=== PATIENT | female | born 1990 | race Caucasian/White ===

== ENCOUNTER → 2017-09-07 19:03 | Observation (INO) ==
[2017-09-07 16:59] LABS: Amphetamine Screen,Urine Negative ng/mL (Cutoff=1000); Barbiturate Screen,Urine Negative ng/mL (Cutoff=200); Benzodiazepines Screen,Urine Negative ng/mL (Cutoff=200); Cannabinoid Screen,Urine Negative ng/mL (Cutoff = 50); Cocaine Screen,Urine Negative ng/mL (Cutoff= 300); Opiate Screen,Urine Negative ng/mL (Cutoff=300); Phencyclidine Screen,Urine Negative ng/mL (Cutoff=25)
--- NOTE | 2017-09-07 19:21 | OB/GYN Progress Note ---
Date of Encounter: 09/07/17 Time of Encounter: 19:19 - Assessment and Plan (1) 32 weeks gestation of Current Visit: Yes Status: Acute (2) Fall Current Visit: Yes Status: Acute Reactive tracing, fingertip cervix, discharged home with labor and when to return to triage precautions Qualifiers: Encounter type: initial encounter Qualified Code(s): W19.XXXA - Unspecified fall, initial encounter (3) NST (non-stress test) reactive on surveillance Current Visit: Yes Status: Acute Baseline 140s Subjective - Subjective Interval history: 32 weeks gestation presents to triage following a fall yesterday evening at home. Patient states she was lifting after he got out of a bathtub and she fell forward landing on her elbows hands and knees, did not strike abdomen. Since then has had normal movement, had some cramping this morning, but that has ceased. Denies vaginal bleeding or leaking of fluid Antepartum ROS: movement normal, no loss of fluid, no vaginal bleeding, no contractions Objective - Exam FHR: auscultation normal Abdomen: Present: normal appearance, soft, gravid Cervical dilation: Fingertip/long/high
== END | disposition home or self-care (01) ==
LOC: 1NENULAB
PROVIDERS: ADMIT Obstetrics & Gynecology; ATTEND Obstetrics & Gynecology

== ENCOUNTER 2017-10-26 17:23 | Inpatient (IN) ==
[2017-10-26] MEDS ORDERED: *HR* Nalbuphine 10 MG/ML AMPUL IVP PRN (17:25)
[2017-10-26] MEDS ORDERED: Famotidine 20 MG/2 ML VIAL IVP PRN (17:25)
[2017-10-26] MEDS ORDERED: Ondansetron 4 MG/2 ML VIAL IVP PRN (17:25)
[2017-10-26] MEDS ORDERED: Metoclopramide 10 MG/2 ML VIAL IVP PRN (17:25)
[2017-10-26] MEDS ORDERED: Lidocaine 1% 20 ML MDV INFILT PRN (17:25)
[2017-10-26] MEDS ORDERED: Naloxone 0.4 MG/ML INJ IVP PRN (17:25)
[2017-10-26] MEDS ORDERED: Ringers Solution, Lactated 1,000 ML IVC SCH (17:30)
[2017-10-26 18:01] LABS: Bilirubin,Urine Negative (Negative); Blood,Urine Moderate (Negative); Clarity,Urine Cloudy (Clear); Color,Urine Yellow (Yellow); Glucose,Urine (UA) Normal (Normal); Ketones,Urine Negative (Negative); Leukocyte Esterase,Urine Moderate (Negative); Nitrite,Urine Negative (Negative); PH,Urine 6.5 pH Units (5.0-8.0); Protein,Urine Negative (Neg-Trace); Specific Gravity,Urine < 1.005 (1.010-1.025); Urobilinogen,Urine Normal (Normal)
[2017-10-26 18:03] LABS: Bacteria,Urine None Seen per hpf (None-Few); Hyaline Casts,Urine None Seen per lpf (None-Few); Squamous Epithelial Cell,Urine Many per lpf (None-Few); WBC,Urine 0-3 per hpf (0-3)
[2017-10-26 18:11] LABS: Basophils % 0.3 %
[2017-10-26 18:12] LABS: Protein/Creatinine Ratio,Urine 0.17 mg/mg (0.00-0.20)
[2017-10-26 18:18] LABS: Amphetamine Screen,Urine Negative ng/mL (Cutoff=1000); Barbiturate Screen,Urine Negative ng/mL (Cutoff=200); Benzodiazepines Screen,Urine Negative ng/mL (Cutoff=200); Cannabinoid Screen,Urine Negative ng/mL (Cutoff = 50); Cocaine Screen,Urine Negative ng/mL (Cutoff= 300); Opiate Screen,Urine Negative ng/mL (Cutoff=300); Phencyclidine Screen,Urine Negative ng/mL (Cutoff=25)
[2017-10-26 18:24] LABS: Alanine Aminotransferase 11 Units/L (7-52); Aspartate Amino Transferase 19 Units/L (13-39); BUN/Creatinine Ratio 20 (6-26); Blood Urea Nitrogen 10 mg/dL (6-20); Lactate Dehydrogenase 195 Units/L (140-271); Uric Acid 3.9 mg/dL (2.3-7.6); eGFR For Non-African Americans > 60 (> 60)
[2017-10-26 18:42] LABS: Eosinophils # 0.1 K/mcL (0.0-0.6); Eosinophils % 0.8 %; Hematocrit 39.7 % (35.3-44.9); Hemoglobin 13.2 g/dL (11.5-15.4); Immature Granulocytes % 0.7 % (0-4); Lymphocytes # 2.5 K/mcL (0.6-4.6); Lymphocytes % 26.4 %; Mean Corpuscular HGB Conc 33.2 g/dL (31.6-35.5); Mean Corpuscular Hemoglobin 28.8 pg (28.0-33.3); Mean Corpuscular Volume 86.5 fL (83.0-100.0); Mean Platelet Volume 11.2 fL (9.4-12.4); Monocytes # 0.7 K/mcL (0.0-1.3); Monocytes % 7.5 %; Neutrophils # 6.1 K/mcL (1.6-8.9); Platelet Count 172 K/mcL (140-400); Red Blood Count 4.59 M/mcL (3.82-4.97); Red Cell Distribution Width 13.3 % (11.5-14.5); Segmented Neutrophils % 64.3 %
[2017-10-26 18:56] LABS: Platelet Estimate Normal (Normal)
--- NOTE | 2017-10-26 18:56 | OB/GYN History & Physical ---
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 Lake is a 27 year old female at 39 weeks 0 days gestation with an EDB of 11/02/17 dated by early ultrasound. She presents from the office today with elevated blood pressures and left lower extremity swelling. She denies blurry vision, headache, epigastric pain. She endorses good movement and denies leakage of fluid, contractions, vaginal bleeding. She has been seen by Dr. Dwyer throughout this . records are available electronically and have been reviewed. Her has been complicated by gestational diabetes that is diet controlled. Labs: A+ GBS negative Hep B negative HIV negative RPR nonreactive GC/CL negative Varicella immune Rubella immune Past Med Surg Social Fam HX - Past Medical History Medical history: no medical history Psychiatric history: depression - Past Surgical History Surgical History: no surgical history - Social History Smoking Status: Never smoker Smokeless Tobacco Status: No Alcohol use: none Drug use: none, marijuana - Family History Brother Family Member Ethnicity: Non- Living Status: Still Living Hx Family Cardiac Disorders: No Hx Family Respiratory Disorders: No Hx Family Cancer: No Hx Family GI Disorders: Yes (pyloric stenosis) Hx Family Endocrine Disorder: No Hx Family Neuromuscular Disorders: No Hx Family Neurologic Disorders: No Hx Family HEENT Disorders: No Hx Family Autoimmune Disorders: No Hx Family Medical Disorders: Yes (pyloric stenosis) Obstetrical History - Pregnancies : 2 Para: 1 Term: 1 (08/25/15,Male,Arpan,6lbs 5oz,vaginal) : 0 Ab's: 0 Livin Medications and Allergies Tablet 08/24/15 [History] Ibuprofen [Motrin] 600 mg PO Q6HR PRN #40 tablet 08/26/15 [Rx] 3 Allergy/AdvReac Type Severity Reaction Status Date / Time [place] Allergy Hives Verified 10/26/17 17:40 penicillin G Allergy See Verified 10/26/17 17:40 Comments Review of System OB All systems PM: reviewed and no additional remarkable complaints except as stated Exam - Constitutional Constitutional: well developed, well nourished, no acute distress, average body habitus - HEENT HEENT: Normocephaly, Mucus Membranes Moist - Neck Neck exam: full ROM - Lungs Respiratory exam: CTAB - Cardiovascular Cardiovascular exam: RRR, +S1, +S2 - Breasts Breast: bilateral: normal - Abdomen Abdomen: Present: bowel sounds normal, gravid, non tender - Extremities Extremities exam: pedal edema, radial pulses palpable and symmetrical - Vulva Vulva: bilateral: normal - Vagina Vagina: Present: normal moisture - Cervix Dilation: 4 Effacement: 80 Station: -2 - Uterus Uterus exam: Present: normal size, normal contour Results Result Diagrams: 10/26/17 17:40 Abnormal lab results Creatinine 0.51 mg/dL (0.60-1.20) L 10/26/17 17:40 All other labs normal. - VTE Reasons for not Prescribing Prophylaxis: Treatment not Indicated - Low risk for VTE
[2017-10-26] MEDS ORDERED: Oxytocin 20 units/ LR 1000 mL 20 UNIT/1,000 ML BAG IVC ONE (20:54)
[2017-10-26] MEDS ORDERED: Oxytocin 20 units/ LR 1000 mL 20 UNIT/1,000 ML BAG IVC SCH (21:00)
--- NOTE | 2017-10-26 22:42 | Anesthesia Evaluation PreOp ---
Date of Encounter: 10/26/17 Time of Encounter: 22:39 - Past History Planned Operation: KENNEDY Cardiac History: Other (PIH; normotensive at time of assessment) Pulmonary History: Asthma (well controlled) COMMUNITY SERVICE REPRESENTATIVE History: Denies Any Significant HX Other Medical History: Other (gestational diabetes) Anesthesia History: No Prior Anesthetic Complications (previous KENNEDY x 1 that was unilateral in sensory analgesia; never had procedure requiring GA; denies family h/o GA complications) : Yes Alcohol Use: none Drug use: none, marijuana Medications and Allergies Tablet 08/24/15 [History] Ibuprofen [Motrin] 600 mg PO Q6HR PRN #40 tablet 08/26/15 [Rx] 3 Allergy/AdvReac Type Severity Reaction Status Date / Time [place] Allergy Hives Verified 10/26/17 17:40 penicillin G Allergy See Verified 10/26/17 17:40 Comments - Meds/Allergy Pre-op Review Medications Reviewed: Yes Allergies Reviewed: Yes Beta Blockers on Current Med List: No Anesthesia Results - Labs 10/26/17 17:40 10/26/17 17:40 Anesthesia Exam 117/84, HR 48, RR 16 O2 Sat Height 1.47 m Weight 62.596 kg NPO (# of Hours): solids >8h Pain Scale: 2 Pain Scale Used: Numeric (1 - 10) - HEENT Pupil (Motor): Pupils equal Mallampati: II Teeth: Normal Oral Opening: Greater than 3 - COMMUNITY SERVICE REPRESENTATIVE LOC: Oriented COMMUNITY SERVICE REPRESENTATIVE Motor: Normal RUE, Normal LUE, Normal RLE, Normal LLE, Normal Face COMMUNITY SERVICE REPRESENTATIVE Sensory: Normal: RUE, LUE, RLE, LLE, Face - Cardiac Rhythm: Regular Murmur: None - Pulmonary Breath Sounds: bilateral Clear Respiratory Effort: Symmetrical Anesthesia Assess/Plan ASA Score: 2 Modified [place] Scale for Level of Consciousness: Cooperative, oriented, and tranquil Anesthetic Plan: Regional Autologous Blood: No Monitoring Plan: Standard Monitors Recovery Plan: Other
[2017-10-26] MEDS ORDERED: Bupivacaine-MPF 0.25% 10 ML VIAL EP ONE (22:43)
[2017-10-26] MEDS ORDERED: *HR* FentaNYL (PF) 100 MCG/2 ML VIAL EP ONE (22:43)
[2017-10-26] MEDS ORDERED: Epidural Premix (fent/bupiv) 110 ML EP SCH (22:45)
--- NOTE | 2017-10-27 01:52 | OB Labor Progress Note ---
Date of Encounter: 10/27/17 Time of Encounter: 01:50 Labor Progress Note - Subjective Subjective: Pt reports some mild to moderate discomfort with ctx. - Cervix Cervix: 6/80/-2 - Heart Tones Heart Tones: FHR Category I - [place]: Ctx q 2 min - Interventions Interventions: SVE AROM - clear fluid IUPC - Plan Plan: Continue induction management. Frequent position changes Anticipate
[2017-10-27] MEDS ORDERED: Lidocaine -MPF 1% 5 ML AMPUL ONE (02:26)
[2017-10-27] MEDS ORDERED: Bupivacaine-MPF 0.25% 10 ML VIAL ONE (02:26)
[2017-10-27] MEDS ORDERED: *HR* FentaNYL (PF) 100 MCG/2 ML VIAL ONE (02:26)
--- NOTE | 2017-10-27 03:01 | Anesthesia Procedures ---
Date of Encounter: 10/27/17 Time of Encounter: 02:40 Procedures: Anesthesia - Epidural/Spinal Patient ID/Chart reviewed: Yes Patient examined: Yes OB Eval: Gestational age: 39 weeks 1 day OB Eval: : 2 OB Eval: Hx Para: 1 OB Eval: Dilated at (cm): 6 OB Eval: Contractions: Non-stressed pattern Consent Obtained: Yes Supplemental Oxygen: None/Room Air Site Prep: Aseptic Technique, Sterile prep and drape, Povidone-Iodine 1% Patient position: upright Local Anesthetic: Lidocaine 1% Amount of Local Anesthetic used: 3 Touhy Needle Gauge: 18 Touhy Needle Depth (cm): 4 Catheter Depth at Skin (cm): 9 Test Dose (1.5% Lido + Epi): Volume given (mls): 5 Test Dose Result: Negative Loading Dose: 0.25% Marcaine (mls): 5 Loading Dose: Fentanyl (mcg): 100 Loading Dose Administered: Thru Catheter Infusion Med: 0.125% Bupivacaine w/ 2 mcg/ml Fentanyl Infusion Rate (mls/hr): 12 (w/ demand of 4mL q30min PRN) Catheter Secured in Place: Tegaderm, Tape Interspace Used: L3-L4 Loss of Resistance (FADI): Yes Blood: No CSF: No Paresthesia: No Procedure: successful on 1st attempt; patient tolerated procedure well; VSS Vitals + FHT's: see Anna Marie RN's electronic records for VS entry
--- NOTE | 2017-10-27 04:13 | OB Labor Progress Note ---
Date of Encounter: 10/27/17 Time of Encounter: 04:12 Labor Progress Note - Subjective Subjective: Patient comfortable with epidural. - Cervix Cervix: 9/100/0 - Heart Tones Heart Tones: FHR category II Some variable decelerations - [place]: Contractions every 4-5 minutes - Interventions Interventions: SVE - Plan Plan: Continue induction management Anticipate .
[2017-10-27] MEDS ORDERED: Measles/Mumps/Rubella Vacc 0.5 ML VIAL SQ PRN (07:38)
[2017-10-27] MEDS ORDERED: Oxytocin 20 units/ LR 1000 mL 20 UNIT/1,000 ML BAG IVC SCH (07:45)
[2017-10-27] MEDS ORDERED: Prenatal Vit/FA 1 EACH TABLET PO SCH (09:00)
--- NOTE | 2017-10-27 14:05 | OB/GYN Procedure Note ---
Delivery - Delivery Date: 10/27/17 Provider: Tarah Reeder Intrapartum events: none Delivery induction: oxytocin Delivery augmentation: rupture of membranes Delivery monitor: external FHT, external uterine, internal FHT, internal uterine Anesthesia: epidural Quantitated Blood Loss: 200 - (s) A Delivery Date: 10/27/17 Delivery Time: 05:41 Presentation: vertex Position: CHUCKIE Route of delivery: Gender: Female Viability: Viable Pounds: 6 Ounces: 13 Weight Gram: 3.095 kg at 1 minute: 9 at 5 mins: 9 Shoulder Dystocia: not encountered Placenta: spontaneous Cord: 3 umbilical vessels - Repair Episiotomy: none Laceration Description: None - Complications Delivery complications: none Delivery comments: This is a 27-year-old G2 now P2 who was admitted for induction of labor secondary to gestational diabetes mellitus and gestational hypertension. She progressed with Pitocin augmentation and AROM to the second stage of labor. She pushed for about a half-hour. Under maternal effort she delivered a viable female , CHUCKIE over an intact perineum. The was placed on the maternal abdomen where the umbilical cord was left intact until pulsations ceased. The cord was double clamped by head tennis coach and cut by FOB. No nuchal cord was identified. No shoulder dystocia was encountered. scores were 8 at 1 minute and 9 at 5 minutes. The placenta delivered spontaneously, intact, with a three-vessel cord. Inspection revealed no perineal, sidewall, or cervical lacerations. The uterus was firm with no active bleeding. EBL was 200 mL. Placenta and umbilical artery blood gas were not sent. There were no complications during the procedure. Mom and baby are skin to skin following delivery. - Disposition Mom disposition: stable in LDR [place] disposition: stable in LDR
[2017-10-27] MEDS: Ibuprofen 600 MG TABLET PO PRN (18:41)
[2017-10-28] MEDS: Ibuprofen 600 MG TABLET PO PRN (00:13)
[2017-10-28 07:36] LABS: Basophils % 0.3 %; Eosinophils # 0.1 K/mcL (0.0-0.6); Eosinophils % 1.1 %; Hemoglobin 12.2 g/dL (11.5-15.4); Immature Granulocytes % 0.6 % (0-4); Lymphocytes # 2.1 K/mcL (0.6-4.6); Lymphocytes % 23.8 %; Mean Corpuscular Hemoglobin 29.3 pg (28.0-33.3); Mean Corpuscular Volume 88.9 fL (83.0-100.0); Mean Platelet Volume 10.7 fL (9.4-12.4); Monocytes # 0.6 K/mcL (0.0-1.3); Monocytes % 6.3 %; Nucleated Red Blood Cells 0.2 /100 WBC (0); Platelet Count 178 K/mcL (140-400); Red Blood Count 4.16 M/mcL (3.82-4.97); Red Cell Distribution Width 13.3 % (11.5-14.5); Segmented Neutrophils % 67.9 %
--- NOTE | 2017-10-28 08:43 | Discharge Summary ---
Date of Encounter: 10/28/17 Time of Encounter: 08:39 - Discharge Diagnosis (1) Vaginal delivery Priority: Primary Status: Acute Comments: S/P vaginal delivery day 1. VSS Pain is well controlled Lochia is light and without clots Voiding and passing flatus without difficulty Breast feeding well. Discharge home today. - Discharge Medications Prescriptions: Ibuprofen [Motrin] 600 mg PO Q6HR PRN #30 tablet PRN Reason: Cramping Breast Pump [BREAST PUMP] 1 each .ROUTE AD #1 each Docusate [Colace] 100 mg PO BID PRN #30 capsule PRN Reason: Constipation Home Medications: Tablet 08/24/15 [History] Breast Pump [BREAST PUMP] 1 each .ROUTE AD #1 each 10/28/17 [Rx] Docusate [Colace] 100 mg PO BID PRN #30 capsule 10/28/17 [Rx] Ibuprofen [Motrin] 600 mg PO Q6HR PRN #30 tablet 10/28/17 [Rx] Allergies/Adverse Reactions: 3 Allergy/AdvReac Type Severity Reaction Status Date / Time [place] Allergy Hives Verified 10/26/17 17:40 penicillin G Allergy See Verified 10/26/17 17:40 Comments Data Procedures and tests throughout hospitalization: Laboratory Tests 10/26/17 10/26/17 10/26/17 17:40 17:40 17:40 WBC RBC Hgb Hct MCV MCH MCHC RDW Plt Count MPV Immature Gran % Seg Neutrophils % Lymphocytes % Monocytes % Eosinophils % Basophils % Neutrophils # Lymphocytes # Monocytes # Eosinophils # Basophils # Nucleated RBCs/100 WBC Platelet Estimate BUN 10 Creatinine 0.51 L Est GFR ( Amer) > 60 Est GFR (Non-Af Amer) > 60 BUN/Creatinine Ratio 20 Uric Acid 3.9 AST 19 ALT 11 Lactate Dehydrogenase 195 Urine Color Yellow Urine Clarity Cloudy A Urine pH 6.5 Ur Specific [place] < 1.005 L Urine Protein Negative Urine Glucose (UA) Normal Urine Ketones Negative Urine Blood Moderate H Urine Nitrite Negative Urine Bilirubin Negative Urine Urobilinogen Normal Ur Leukocyte Esterase Moderate H Urine Microscopic WBC 0-3 Ur Squamous Epith Cells Many H Urine Bacteria None Seen Hyaline Casts None Seen Urine Creatinine 36 Protein/Creatinin Ratio 0.17 Urine Total Protein 6 Urine Opiates Screen Ur Barbiturates Screen Ur Phencyclidine Scrn Ur Amphetamines Screen U Benzodiazepines Scrn Urine Cocaine Screen U Marijuana (THC) Screen Ur Drug Screen Interp 10/26/17 10/26/17 10/28/17 17:40 17:40 07:11 WBC 9.5 8.9 RBC 4.59 4.16 Hgb 13.2 12.2 Hct 39.7 37.0 MCV 86.5 88.9 MCH 28.8 29.3 MCHC 33.2 33.0 RDW 13.3 13.3 Plt Count 172 178 MPV 11.2 10.7 Immature Gran % 0.7 0.6 Seg Neutrophils % 64.3 67.9 Lymphocytes % 26.4 23.8 Monocytes % 7.5 6.3 Eosinophils % 0.8 1.1 Basophils % 0.3 0.3 Neutrophils # 6.1 6.0 Lymphocytes # 2.5 2.1 Monocytes # 0.7 0.6 Eosinophils # 0.1 0.1 Basophils # 0.0 0.0 Nucleated RBCs/100 WBC 0.2 H Platelet Estimate Normal BUN Creatinine Est GFR ( Amer) Est GFR (Non-Af Amer) BUN/Creatinine Ratio Uric Acid AST ALT Lactate Dehydrogenase Urine Color Urine Clarity Urine pH Ur Specific [place] Urine Protein Urine Glucose (UA) Urine Ketones Urine Blood Urine Nitrite Urine Bilirubin Urine Urobilinogen Ur Leukocyte Esterase Urine Microscopic WBC Ur Squamous Epith Cells Urine Bacteria Hyaline Casts Urine Creatinine Protein/Creatinin Ratio Urine Total Protein Urine Opiates Screen Negative Ur Barbiturates Screen Negative Ur Phencyclidine Scrn Negative Ur Amphetamines Screen Negative U Benzodiazepines Scrn Negative Urine Cocaine Screen Negative U Marijuana (THC) Screen Negative Ur Drug Screen Interp See Below Labs on day of discharge: Labs from last 24 hours 10/28/17 07:11 WBC 8.9 RBC 4.16 Hgb 12.2 Hct 37.0 MCV 88.9 MCH 29.3 MCHC 33.0 RDW 13.3 Plt Count 178 MPV 10.7 Immature Gran % 0.6 Seg Neutrophils % 67.9 Lymphocytes % 23.8 Monocytes % 6.3 Eosinophils % 1.1 Basophils % 0.3 Neutrophils # 6.0 Lymphocytes # 2.1 Monocytes # 0.6 Eosinophils # 0.1 Basophils # 0.0 Nucleated RBCs/100 WBC 0.2 H Date of admission: 10/26/17 17:23 Primary care physician: Pam Figueroa MD Consults: 10/27/17 07:38 Consult to Human Resources Operations Coordinator [CONS] Routine Comment: Vaginal delivery, consult needed Discharging clinician: Tarah Black Anticipated date of discharge: 10/28/17 - Patient Status Disposition: Home, Self-Care Condition: Good Functional capacity at discharge: independent ambulation Overall status at discharge: patient is progressing back to baseline - Discharge Instructions Follow Up With: Pam Figueroa MD [Primary Care Provider] - Tarah Reeder [Advanced Practice Nurse] - - Diet and Activity Activity: increase activity as tolerated Diet: regular diet Hospital Course Reason for admission: IUP at term Delivery: Episiotomy: none Laceration: none Other procedures: none complications: none Discharge diagnosis: IUP at term delivered baby: female Time Attestation: Total time spent providing and/or coordinating discharge services: Time Spent: Less than 30 minutes Exam - Constitutional Vitals: Temp Pulse Resp BP Pulse Ox 98 F 80 16 121/80 96 10/28/17 03:05 10/28/17 03:05 10/28/17 03:05 10/28/17 03:05 10/28/17 03:05 General appearance IM: cooperative, A&O X 3, pleasant - Respiratory Respiratory exam: Present: CTAB - Cardiovascular Cardiovascular exam IM: Present: RRR, +S1, +S2 - GI/Abdominal GI/Abdominal exam IM: normal bowel sounds, soft - Rectal Rectal exam: deferred - Uterine Tone: Firm Uterus Position: At Umbilicus, Midline - Extremities Exam Extremities exam IM: Present: normal capillary refill, normal inspection, pedal edema, radial pulses palpable and symmetrical - Neurological Exam Neurological exam: alert, oriented X3
[2017-10-28 08:50] VITALS: BP 123/82
== END 2017-10-28 10:15 | disposition home or self-care (01) | DRG 775 ==
LOC: 1NENULAB 17:23 → 1NENUOBS 10-27 09:16
PROVIDERS: ADMIT Advanced Practice Midwife; ATTEND Advanced Practice Midwife